=== PATIENT | female | born 1960 | race Caucasian/White ===

== ENCOUNTER → 2019-01-24 | Outpatient (CLI) | payer OTHER ==
[2019-01-24 08:32] LABS: ABSOLUTE BASOPHILS # (AUTO) 0.1 10^3/uL (0.0-0.2); ABSOLUTE EOSINOPHILS # (AUTO) 0.2 10^3/uL (0.0-0.6); ABSOLUTE LYMPHOCYTES (AUTO) 2.5 10^3/uL (0.5-4.7); ABSOLUTE MONOCYTES (AUTO) 0.5 10^3/uL (0.1-1.4); ABSOLUTE NEUT (AUTO) 1.2 10^3/uL (1.7-8.2); BASOPHILS % (AUTO) 1.2 % (0-2); EOSINOPHILS % (AUTO) 5.5 % (0-6); HEMOGLOBIN 15.1 g/dL (12.0-15.5); LYMPHOCYTES % (AUTO) 54.3 % (13-45); MEAN CORPUSCULAR HEMOGLOBIN 33.1 pg (27.0-33.4); MEAN CORPUSCULAR VOLUME 94 fl (80-97); MONOCYTES % (AUTO) 11.9 % (3-13); PLATELET COUNT 216 10^3/uL (150-450); RED BLOOD COUNT 4.56 10^6/uL (3.72-5.28); RED CELL DISTRIBUTION WIDTH 12.3 % (11.5-14.0); SEGMENTED NEUTROPHILS % (AUTO) 27.1 % (42-78); TOTAL CELLS COUNTED % (AUTO) 100 %; WHITE BLOOD COUNT 4.6 10^3/uL (4.0-10.5)
[2019-01-24 08:55] LABS: ALBUMIN 4.7 g/dL (3.5-5.0); ALKALINE PHOSPHATASE 70 U/L (38-126); ANION GAP 13 (5-19); ASPARTATE AMINO TRANSFERASE 98 U/L (14-36); BILIRUBIN,DIRECT 0.1 mg/dL (0.0-0.4); BILIRUBIN,TOTAL 0.8 mg/dL (0.2-1.3); BLOOD UREA NITROGEN 19 mg/dL (7-20); CARBON DIOXIDE 26 mmol/L (22-30); CHLORIDE 100 mmol/L (98-107); CHOLESTEROL 210.12 mg/dL (0-200); GLUCOSE 133 mg/dL (75-110); POTASSIUM 4.7 mmol/L (3.6-5.0); TOTAL PROTEIN 7.8 g/dL (6.3-8.2); TRIGLYCERIDES 112 mg/dL (<150); URIC ACID 5.7 mg/dL (2.5-7.5)
[2019-01-24 09:06] LABS: DIRECT LDL 110 mg/dL (<100)
[2019-01-25 10:37] LABS: CREATININE URINE 159.5 mg/dL (Not Estab.); MICROALBUMIN URINE 12.4 ug/mL (Not Estab.)
== END ==
LOC: OD 07:21
DX: I10 Essential (primary) hypertension (principal); E11.8 Type 2 diabetes mellitus with unspecified complications; C56.9 Malignant neoplasm of unspecified ovary
CPT/HCPCS: 36415; 80053; 80061; 82043; 82570; 83036; 83735; 84443; 84550; 85025; 86304

== ENCOUNTER → 2019-02-27 | Outpatient (CLI) | payer OTHER ==
[2019-02-27 11:34] LABS: ABSOLUTE EOSINOPHILS # (AUTO) 0.2 10^3/uL (0.0-0.6); ABSOLUTE LYMPHOCYTES (AUTO) 1.9 10^3/uL (0.5-4.7); ABSOLUTE MONOCYTES (AUTO) 0.5 10^3/uL (0.1-1.4); ABSOLUTE NEUT (AUTO) 1.3 10^3/uL (1.7-8.2); BASOPHILS % (AUTO) 0.9 % (0-2); EOSINOPHILS % (AUTO) 4.1 % (0-6); HEMATOCRIT 40.8 % (36.0-47.0); HEMOGLOBIN 14.2 g/dL (12.0-15.5); LYMPHOCYTES % (AUTO) 50.2 % (13-45); MEAN CORPUSCULAR HEMOGLOBIN 32.7 pg (27.0-33.4); MEAN CORPUSCULAR HGB CONC 34.9 g/dL (32.0-36.0); MEAN CORPUSCULAR VOLUME 94 fl (80-97); MONOCYTES % (AUTO) 11.9 % (3-13); PLATELET COUNT 211 10^3/uL (150-450); RED BLOOD COUNT 4.35 10^6/uL (3.72-5.28); RED CELL DISTRIBUTION WIDTH 12.3 % (11.5-14.0); SEGMENTED NEUTROPHILS % (AUTO) 32.9 % (42-78); TOTAL CELLS COUNTED % (AUTO) 100 %; WHITE BLOOD COUNT 3.8 10^3/uL (4.0-10.5)
== END ==
LOC: CCC 10:21
DX: D72.819 Decreased white blood cell count, unspecified (principal)
CPT/HCPCS: 36415; 85025

== ENCOUNTER 2019-04-15 18:44 | Emergency (ER) | payer SELFPAY ==
[2019-04-15] MEDS ORDERED: DIAZEPAM 2 MG TABLET PO ONE (19:01)
--- NOTE | 2019-04-15 19:03 | ER Document Report ---
ED Medical Screen (RME) - General Chief Complaint: Fall Injury Stated Complaint: FALL/HEAD INJURY Time Seen by Provider: 04/15/19 18:54 [facility]: [facility] [Primary Care Provider] - Follow up as needed Mode of Arrival: Wheelchair Information source: Patient Notes: Patient states that prior to arrival she was walking and turned direction uriostegui ddenly and states that she became dizzy, fell and hit her head. Patient with hematoma to left side of forehead. Patient does complain of headache. Patient denies any loss of consciousness nausea or vomiting. Patient also complains of left second finger bruising. Patient does have a history of Mnire's and feels as though her symptoms are consistent with vertigo episode. Patient complains of continued headache and dizziness. I have greeted and performed a rapid initial assessment of this patient. A comprehensive ED assessment and evaluation of the patient, analysis of test results and completion of the medical decision making process will be conducted by additional ED providers. TRAVEL OUTSIDE OF THE [place] IN LAST 30 DAYS: No - Related Data Allergies/Adverse Reactions: Penicillins Allergy (Mild, Verified 04/15/19 18:52) Hives Sulfa (Sulfonamide Antibiotics) Allergy (Verified 04/15/19 18:52) Past Medical History - Past Medical History Cardiac Medical History: Reports: Hx Hypertension Denies: Hx Coronary Artery Disease, Hx Heart Attack Pulmonary Medical History: Denies: Hx Asthma, Hx Bronchitis, Hx COPD, Hx Pneumonia Neurological Medical History: Denies: Hx Cerebrovascular Accident, Hx Seizures Musculoskeltal Medical History: Denies Hx Arthritis Past Surgical History: Reports: Hx Hysterectomy - PARTIAL. Denies: Hx Pacemaker - Immunizations Hx Diphtheria, Pertussis, Tetanus Vaccination: No Physical Exam - Vital signs Vitals: Temp Pulse Resp BP Pulse Ox 97.8 F 71 16 137/92 H 96 04/15/19 18:50 04/15/19 18:50 04/15/19 18:50 04/15/19 18:50 04/15/19 18:50 - General General appearance: Alert Notes: Hematoma to left side forehead, no cervical tenderness Course - Vital Signs Vital signs: Temp Pulse Resp BP Pulse Ox 97.8 F 71 16 137/92 H 96 04/15/19 18:50 04/15/19 18:50 04/15/19 18:50 04/15/19 18:50 04/15/19 18:50 Doctor's Discharge - Discharge Referrals: [facility] [Primary Care Provider] - Follow up as needed
--- NOTE | 2019-04-15 19:26 | RADIOLOGY REPORT (SQ) ---
EXAM DESCRIPTION: FINGER LEFT COMPLETED DATE/TIME: 04/15/2019 7:10 pm REASON FOR STUDY: fall, L 2nd finger injury COMPARISON: None. NUMBER OF VIEWS: Three views. TECHNIQUE: AP, lateral, and oblique images acquired of the left second finger. LIMITATIONS: None. FINDINGS: MINERALIZATION: Normal. BONES: No acute fracture or dislocation. No worrisome bone lesions. SOFT TISSUES: No soft tissue swelling. No foreign body. OTHER: No other significant finding. IMPRESSION: NO RADIOGRAPHIC EVIDENCE OF ACUTE INJURY. TECHNICAL DOCUMENTATION: JOB ID: [id number] 2010 [employer]- All Rights Reserved Reading location - IP/workstation name: [email or web address]
--- NOTE | 2019-04-15 19:42 | RADIOLOGY REPORT (SQ) ---
EXAM DESCRIPTION: CT HEAD WITHOUT COMPLETED DATE/TIME: 04/15/2019 7:22 pm REASON FOR STUDY: fall, head injury, [place] COMPARISON: None. TECHNIQUE: Axial images acquired through the brain without intravenous contrast. Images reviewed wi th bone, brain and subdural windows. Additional sagittal and coronal reconstructions were generated. Images stored on PACS. All CT scanners at this facility use dose modulation, iterative reconstruction, and/or weight based d osing when appropriate to reduce radiation dose to as low as reasonably achievable (ALARA). [facility]: Dose Right [facility]: CareDose [facility]: Dose Right [facility]: Teradose 4D [facility]: Smart [employer] RADIATION DOSE: CT Rad equipment meets quality standard of care and radiation dose reduction techniq ues were employed. CTDIvol: 48.6 mGy. DLP: 856 mGy-cm. mGy. LIMITATIONS: None. FINDINGS: VENTRICLES: Normal size and contour. CEREBRUM: No masses. No hemorrhage. No midline shift. No evidence for acute infarction. Normal gra y/white matter differentiation. No areas of low density in the white matter. CEREBELLUM: No masses. No hemorrhage. No alteration of density. No evidence for acute infarction. EXTRAAXIAL SPACES: No fluid collections. No masses. ORBITS AND GLOBE: No intra- or extraconal masses. Normal contour of globe without masses. CALVARIUM: No fracture. PARANASAL SINUSES: No fluid or mucosal thickening. SOFT TISSUES: Small left frontal scalp hematoma. OTHER: No other significant finding. IMPRESSION: Small left frontal scalp hematoma with no acute intracranial imaging findings. EVIDENCE OF ACUTE STROKE: NO. COMMENT: Quality ID # [id number]: Final reports with documentation of one or more dose reduction techniques (e.g., Automated exposure control, adjustment of the mA and/or kV according to patient size, use of iterative reconstruction technique) TECHNICAL DOCUMENTATION: JOB ID: [id number] 2010 [employer]- All Rights Reserved Reading location - IP/workstation name: [email or web address]
--- NOTE | 2019-04-15 20:30 | ER Document Report ---
ED General - General Chief Complaint: Fall Stated Complaint: FALL/HEAD INJURY Time Seen by Provider: 04/15/19 18:54 [facility]NO [facility] - Follow up as needed Mode of Arrival: Wheelchair TRAVEL OUTSIDE OF THE [place] IN LAST 30 DAYS: No - HPI Notes: Patient is a 58-year-old female who presents to the emergency department for evaluation. She was [place], turned around quickly, had a vertiginous episode, and fell to the ground. She hit her head. She landed on her left side. She believes she struck her left index finger as well as her left knee. She did not lose consciousness. She denies any neck or back pain. No difficulty seeing, speaking, swallowing. She is moving her arms and legs without difficulty. She states she has minimal pain at this time, rates it a 2 out of 10. Nothing seems to make it better or worse. She was able to get up on her own power and walk without difficulty. - Related Data Allergies/Adverse Reactions: Penicillins Allergy (Mild, Verified 04/15/19 18:52) Hives Sulfa (Sulfonamide Antibiotics) Allergy (Verified 04/15/19 18:52) Home Medications: Metformin, spironolactone, atenolol Past Medical History - General Information source: Patient - Social History Smoking Status: Former Smoker Family History: Reviewed & Not Pertinent Patient has suicidal ideation: No Patient has homicidal ideation: No - Past Medical History Cardiac Medical History: Reports: Hx Hypertension Denies: Hx Coronary Artery Disease, Hx Heart Attack Pulmonary Medical History: Denies: Hx Asthma, Hx Bronchitis, Hx COPD, Hx Pneumonia EENT Medical History: Reports: Ears - Mnire's disease Neurological Medical History: Denies: Hx Cerebrovascular Accident, Hx Seizures Endocrine Medical History: Reports: Hx Diabetes Mellitus Type 2 Musculoskeletal Medical History: Denies Hx Arthritis Past Surgical History: Reports: Hx Hysterectomy - PARTIAL. Denies: Hx Pacemaker - Immunizations Hx Diphtheria, Pertussis, Tetanus Vaccination: No Review of Systems - Review of Systems Musculoskeletal: See HPI Neurological/Psychological: See HPI Physical Exam - Vital signs Vitals: Temp Pulse Resp BP Pulse Ox 97.8 F 71 16 137/92 H 96 04/15/19 18:50 04/15/19 18:50 04/15/19 18:50 04/15/19 18:50 04/15/19 18:50 - Notes Notes: This is a very pleasant 58-year-old female who appears her stated age in no acute distress. Vital signs reviewed, please refer to chart. Head is normocephalic. She has a left frontal hematoma that is tender to palpation without skin break. Pupils equal round, reactive to light. Nares are patent without septal hematoma, no nasal bone tenderness. TMs are pearly kenyon with good light reflex bilaterally. Neck is supple without meningismus. No midline tenderness or step-off. No paraspinal musculature tenderness is appreciated. Heart is regular rate and rhythm. Lungs are clear to auscultation bilaterally. Abdomen is soft, nontender, normoactive bowel sounds throughout. Extremities without cyanosis, clubbing. Posterior calves are nontender. Peripheral pulses are equal. Skin is warm and dry. Patient is awake, alert, oriented x3. Cranial nerves II - XII are grossly intact without focal neurological deficits. Strength is plus 5 out of 5 bilateral upper and lower extremities. Sensation is intact. Reflexes symmetrical. Intact [id number], rapid alternating movements, [id number]. Examination of the left hand yields small amount of ecchymosis overlying the proximal interphalangeal joint of the index finger on the dorsal aspect. She is full range of motion of the finger, capillary refill is brisk, sensation is intact. Examination of the left knee yields no obvious deformity. She is full range of motion. No significant tenderness. Neurovascularly intact distally to the left lower extremity. Course - Re-evaluation Re-evalutation: 04/15/19 20:28 Patient presents to the emergency department for evaluation. She has a history of vertigo, secondary to Mnire's disease, states that this is the reason that she fell. Her CT scan of her head was unremarkable, as was the x-ray of her left finger. We both agree that we do not believe x-rays are necessary at this time of her left knee. She is told to take Tylenol or ibuprofen at home, preferably with food, to minimize pain. She did ask for something to help her with her vertigo, which seems to be worsening as of late. She is already on spironolactone, is following at the [facility]. She states the Valium had worked well for her in the past. I will give her a small amount of low-dose Valium. She is to follow-up with primary care, return to the ED with worsening or new concerning symptoms of any sort. - Vital Signs Vital signs: Temp Pulse Resp BP Pulse Ox 98.3 F 72 16 120/68 95 04/15/19 20:42 04/15/19 20:42 04/15/19 20:42 04/15/19 20:42 04/15/19 20:42 - Diagnostic Test Radiology reviewed: Reports reviewed Radiology results interpreted by me: 04/15/19 20:[address] 04/15/19 18:59 IMPRESSION: Small left frontal scalp hematoma with no acute intracranial imaging findings. EVIDENCE OF ACUTE STROKE: NO. Finger X-Ray 04/15/19 19:02 IMPRESSION: NO RADIOGRAPHIC EVIDENCE OF ACUTE INJURY. Discharge - Discharge Clinical Impression: Hematoma of frontal scalp Qualifiers: Encounter type: initial encounter Qualified Code(s): S00.03XA - Contusion of scalp, initial encounter Closed head injury Qualifiers: Encounter type: initial encounter Qualified Code(s): S09.90XA - Unspecified injury of head, initial encounter Contusion of left index finger Qualifiers: Encounter type: initial encounter Contusion of left knee Qualifiers: Encounter type: initial encounter Qualified Code(s): S80.02XA - Contusion of left knee, initial encounter Mnire's disease Qualifiers: Laterality: unspecified laterality Qualified Code(s): H81.09 - Meniere's disease, unspecified ear Condition: Stable Disposition: HOME, SELF-CARE Instructions: Contusion ([facility]), Head Injury Precautions ([facility]) Additional Instructions: Tylenol or ibuprofen as discussed, as needed for pain. Please take the Valium as needed for severe vertigo, watching for dizziness and drowsiness with this medication. Follow-up with your primary care provider this week. Return to the emergency department if you develop worsening or new concerning symptoms of any sort. Prescriptions: Diazepam [Valium 2 mg Tablet] 2 mg PO Q6HP PRN #15 tablet PRN Reason: [facility]errals: [facility] [NO LOCAL MD] - Follow up as needed
[2019-04-15 20:44] VITALS: BP 120/68
== END 2019-04-15 20:44 | disposition home or self-care (01) ==
LOC: ER 18:44
DX: S60.022A Contusion of left index finger without damage to nail, initial encounter (principal); S00.03XA Contusion of scalp, initial encounter; S80.02XA Contusion of left knee, initial encounter; H81.09 Meniere's disease, unspecified ear; R51 Headache; W18.30XA Fall on same level, unspecified, initial encounter; Z88.0 Allergy status to penicillin; Z88.2 Allergy status to sulfonamides; Z90.710 Acquired absence of both cervix and uterus
CPT/HCPCS: 99284; 73140; 70450; J3490